=== PATIENT | male | born 1965 | race African-American/Black ===

== ENCOUNTER 2017-10-19 08:16 | Emergency (ER) | payer MEDICARE ==
[2017-10-19] MEDS ORDERED: diphenhydrAMINE 50 MG/ML VIAL ONE (10:07)
[2017-10-19] MEDS ORDERED: Metoclopramide HCl 10 MG/2 ML VIAL ONE (10:07)
[2017-10-19] MEDS ORDERED: Ketorolac Tromethamine 30 MG/ML VIAL ONE (10:07)
== END 2017-10-19 12:10 | disposition home or self-care (01) ==
LOC: ERS 08:16
DX: G43.909 Migraine, unspecified, not intractable, without status migrainosus (principal); Z71.6 Tobacco abuse counseling; Z87.891 Personal history of nicotine dependence
CPT/HCPCS: 93005; 96365; 96375; 99406; J1200; J1885; J2765